=== PATIENT | male | born 1975 | race Hispanic/Latino ===

== ENCOUNTER 2022-01-06 11:39 | Emergency (ER) | payer BC ==
[2022-01-06] MEDS ORDERED: methylPREDNISolone Acetate 40 mg/ml Vial ONE (12:27)
[2022-01-06] MEDS ORDERED: traMADol HCl 50 MG TAB ONE (12:28)
== END 2022-01-06 12:50 | disposition home or self-care (01) ==
LOC: NAV ERS 11:39
DX: S39.012A Strain of muscle, fascia and tendon of lower back, initial encounter (principal); X50.9XXA Other and unspecified overexertion or strenuous movements or postures, initial encounter; Z86.73 Personal history of transient ischemic attack (TIA), and cerebral infarction without residual deficits; I10 Essential (primary) hypertension; Z79.899 Other long term (current) drug therapy
CPT/HCPCS: 96372; 99283; J2920

== ENCOUNTER 2023-04-10 04:35 | Emergency (ER) | payer BC, SELFPAY ==
[2023-04-10 05:05] LABS: #Eosinphils 0.3 thou/uL (0.0-0.7); #Lymphocytes 3.1 thou/uL (1.20-3.40); #Neutrophils 5.5 thou/uL (1.40-6.50); %Basophils 0.7 % (0.0-1.0); %Eosinophils 3.3 % (0.0-10.0); %Lymphocytes 31.7 % (21.0-51.0); %Monocytes 7.4 % (0.0-10.0); Hematocrit 46.8 % (42.0-52.0); Hemoglobin 15.8 g/dL (14.0-18.0); Mean Corpuscular HGB CONC 33.7 g/dL (32.0-36.0); Mean Corpuscular Volume 85.8 fl (78.0-98.0); Platelet Count 257 10x3/uL (130-400); RBC Distribution Width 12.6 % (11.5-14.5); Red Blood Cell (RBC) Count 5.45 mill/uL (4.70-6.10); White Blood Cell (WBC) Count 9.6 10x3/uL (4.8-10.8)
[2023-04-10 05:06] LABS: #Basophils 0.1 thou/uL (0.0-0.2); #Monocytes 0.7 thou/uL (0.11-0.59)
[2023-04-10 05:10] LABS: PTT 30.6 sec (22.9-36.1); Prothrombin Time 13.6 sec (12.0-14.7)
[2023-04-10 05:20] LABS: BUN (Urea Nitrogen) 14 mg/dL (8.9-20.6); Calc. Creatinine Clearance 0 mL/min (70-130); Carbon Dioxide 25 mmol/L (22-29); Chloride 105 mmol/L (98-107); Estimated GFR 80; Potassium 3.6 mmol/L (3.5-5.1); Sodium 140 mmol/L (136-145); Troponin I Less than 0.010 ng/mL (< 0.028)
[2023-04-10 05:21] LABS: ALT (SGPT) 29 U/L (8-55); AST (SGOT) 16 U/L (5-34); Albumin 4.4 g/dL (3.5-5.0); Alkaline Phosphatase 78 U/L (40-110); Bilirubin, Total 0.4 mg/dL (0.2-1.2); CK (CPK) 76 U/L (30-200); Calcium 9.2 mg/dL (7.6-10.4); Glucose 91 mg/dL (70-105); Protein, Total 7.4 g/dL (6.0-8.3)
[2023-04-10] MEDS ORDERED: Aspirin Chewable 81 MG TAB ONE (05:26)
== END 2023-04-10 08:45 | disposition short-term general hospital (02) ==
LOC: NAV ERS 04:35
DX: R47.81 Slurred speech (principal); R29.700 NIHSS score 0; I10 Essential (primary) hypertension; Z86.73 Personal history of transient ischemic attack (TIA), and cerebral infarction without residual deficits; Z79.899 Other long term (current) drug therapy
CPT/HCPCS: 36416; 70450; 80053; 82550; 84484; 85025; 85610; 85730; 93005